=== PATIENT | female | born 1970 | race Caucasian/White ===

== ENCOUNTER 2024-10-09 01:58 | Day surgery (SDC) | payer BC, SELFPAY ==
[2024-10-05 12:03] VITALS: BMI 25.5
--- OUTSIDE RECORDS SUMMARY | 2024-10-09 02:04 | XMS_ITS | Encounter Summary ---
Author Organization [facility] Address [address] [place] [address] [place] [address] Care Team Providers Care Tile Molder Hand Name Role Phone Unavailable Primary Care Provider Unavailabl e Reason for Visit * Reason Onset Date Comments MEDICATION REFILL 09/08/2021 Encounter Details Date Type Department Care Team (Late st Contact Info) Description 09/08/2021 Refill [facility] [address] [place] [address] Jacek New MD [address] OF PULMONARY/[place] [address] MEDICATION REFILL Social History Tobacco Use Types Packs/Day Years Used Date Smoking Tobacco: Never Smokeless Tobacco: Never Alcohol Use Standard Drinks/Week Comments Yes 0 (1 standard drink = 0.6 oz pur e alcohol) AUDIT-C Answer Date Recorded Frequency of Alcohol Consumption Monthly or less 05/25/2019 Average Number of Drinks Not on file 019 Frequency of Binge Drinking Not on file 05/12 Sex and Gender Information Value Date Recorded Sex Assigned at Not on file Gender Identity Not on file Sexual Orientation Not on file documented as of this encounter Plan of Treatment Not on file documented as of this encounter Visit Diagnoses Diagnosis Uncomplicated asthma, unspecified asthma severity, unspecified whether persistent (HCC) documented in this encounter
--- OUTSIDE RECORDS SUMMARY | 2024-10-09 02:04 | XMS_ITS | Encounter Summary ---
Author Organization [facility] Address [address] [place] [address] [place] [address] Care Team Providers Care Digital Marketing Program Manager Name Role Phone Unavailable Primary Care Provider Unavailabl e Reason for Visit * Reason Onset Date Comments MEDICATION REFILL 06/25/2023 Encounter Details Date Type Department Care Team (Late st Contact Info) Description 06/25/2023 Refill [facility] [address] [place] [address], [place] [phone] Jacek New MD [address] [place] [address] DIV OF PULMONARY/[place] [address] MEDICATION REFILL Social History Tobacco Use Types [...] documented as of this encounter Visit Diagnoses Not on filedocumented in this encounter
--- OUTSIDE RECORDS SUMMARY | 2024-10-09 02:04 | XMS_ITS | Encounter Summary ---
Author Organization [facility] Address [address] [place] [address] [place] [address] Care Team Providers Care Sort Line Worker Name Role Phone Unavailable Primary Care Provider Unavailabl e Reason for Visit * Reason Onset Date Comments MEDICATION REFILL 06/25/2023 Encounter Details Date Type Department Care Team (Late st Contact Info) Description 06/25/2023 Refill [facility] [address] [place] [address], [place] [phone] Jacek New MD [address] [place] [address] DIV OF PULMONARY/[place] [address] MEDICATION REFILL Social History Tobacco Use Types [...]
--- OUTSIDE RECORDS SUMMARY | 2024-10-09 02:04 | XMS_ITS | Clinical Summary ---
Author Organization [facility] Address [address] [place] [address] Care Team Providers Care Nursing Attendant Name Role Phone Unavailable Primary Care Provider Unavailabl e Source Comments [facility],non-owned Affiliates and Associated Physician Practices is amultiple site organization consisting of ambulatory clinics and hospital sitesin [place], [place], [place] and [place]. This disclosure is being madepursuant to the Care Everywhere program and may not contain all information available regarding this patient. Last updated 04/01/18.5211game Allergies No known active allergies Medications * Be aware that medications may not be up to date on this document. Alwaysverify current medications with the patient. Medication Sig Dispensed Refills Start Date End Date Status oxybutynin CR 24hr (DITROPAN XL) 15 MG tablet oxybutynin chloride ER 15 mg tablet,extended release 24 hr Take 1 tablet(s) every day by oral route. Active escitalopram (LEXAPRO) 20 MG tablet TK 1 T PO QAM 1 02/04/2019 Active VENTOLIN HFA 108 (90 Base) MCG/ACT inhaler INL 2 PFS PO Q 4 H PRF WHZ 0 02/08/2019 Active fluticasone furoate (FLONASE SENSIMIST/VERAMYST) 27.5 MCG/SPRAY nasal spray [place] 1 (one) spray into each nostril 2 times daily Active triamcinolone acetonide (KENALOG) 0.1 % cream 10/11/2019 Active albuterol-ipratropiu m (DUO-NEB) 0.5-2.5 (3) MG/3ML nebulizer solution 02/10/2019 Active montelukast (SINGULAIR) 10 MG tabletIndications:Un complicated asthma, unspecified asthma severity, unspecified whether persistent (HCC) Take 1 (one) tablet by mouth once daily 90 tablet 4 11/03/2021 Active budesonide-formotero l (Symbicort) 160-4.5 MCG/ACT inhaler Inhale 1 (one) puff by mouth 2 times daily 6 g 11 06/09/2023 Active dupilumab (Dupixent) 200 MG/1.14ML syringeIndications:S evere persistent asthma without complication (HCC) INJECT THE CONTENTS OF 1 SYRINGE (200 MG) UNDER THE SKIN EVERY 14 DAYS 220 mL 11 06/29/2024 Active Active Problems Problem Noted Date Diagnosed Date Severe asthma without complication 10/25/2019 Premenstrual tension syndrome 05/25/2019 Moderate persistent asthma with acute exacerbati on 02/10/2019 Bronchitis 12/22/2018 Vaginitis 12/22/2018 Immunizations Name Administration Dates Next Due INFLUENZA VACCINE 05/12/2020 INFLUENZA VACCINE, QUADR. (F LUZONE; FLULAVAL; FLUARIX; AFLURIA QUADRIVALENT; 6MO+), 0.5 ML (IIV4) 05/25/2019 Social History Tobacco Use Types Packs/Day Years Used Date Smoking Tobacco: Never Smokeless Tobacco: Never Tobacco Cessation:Counseling Given: Not Answered Alcohol Use Standard Drinks/Week Comments Yes 0 [...] on file Sexual Orientation Not on file Last Filed Vital Signs Vital Sign Reading Time Taken Comments Blood Pressure 136/82 06/09/2023 9:51 AM WEED COOKING OPERATOR Pulse 65 06/09/2023 9:51 AM WEED COOKING OPERATOR Temperature 36.5 C (97.7 F) 08/16/2020 8:09 AM WEED COOKING OPERATOR Respiratory Rate 17 06/09/2023 9:51 AM WEED COOKING OPERATOR Oxygen Saturation 99% 06/09/2023 9:51 AM WEED COOKING OPERATOR Inhaled Oxygen Concentration - - Weight 63.3 kg (139 lb 9.6 oz) 06/09/2023 9:51 A M WEED COOKING OPERATOR Height 154.9 cm (5' 1 ) 06/09/2023 9:51 AM WEED COOKING OPERATOR Body Mass Index 26.38 06/09/2023 9:51 AM WEED COOKING OPERATOR Plan of Treatment Health Maintenance Due Date Last Done Comments COLOGUARD (AGES 45-75) - COL ON CA SCREENING 1968 COLON MONITORING 1968 COLONOSCOPY - COLON CA SCREENING 1968 CT COLONOGRAPHY - COLON CA SCREENING 1968 Colorectal Cancer Screening 1968 FIT - COLON CA SCREENING 1968 FLEX SIG - COLON CA SCREENING 1968 HIV SCREENING 1983 HEPATITIS C SCREENING 08/18/1986 DTAP/TDAP/TD VACCINES (1 - Tdap) 1987 HEPATITIS B VACCINE (1 of 3 - 19+ 3-dose series) 1987 PNEUMOCOCCAL VACCINE 50+ (1 of 2 - PCV) 1987 PNEUMOCOCCAL VACCINE (1 of 2 - PCV) 1987 ZOSTER VACCINE (1 of 2) 2018 MAMMOGRAM 02/02/2021 02/02/2019, 02/02/2019 PAP SMEAR 10/17/2021 10/17/2018, 04/14/2017, 03/17/2016 SCREENING FOR DIABETES 06/09/2023 LIPID TESTING 01/24/2024 01/23/2019 COVID-19 VACCINE (1 - 2023-2 5 season) 2024 INFLUENZA VACCINE (#1) 2024 0, 05/25/2019 DEPRESSION SCREENING 07/12/2024 HIB VACCINE Aged Out No longer eligi ble based on patient's age to complete this topic HPV VACCINE Aged Out No longer eligi ble based on patient's age to complete this topic MENINGOCOCCAL (Group B) VACCINE SHARED DECISION-MAKING Aged Out No longer eligible based on patient's age to complete this topic MENINGOCOCCAL GROUPS A/C/Y/W VACCINE Aged Out No longer eligible b ased on patient's age to complete this topic [place] [address] Mckenna Birch Personal/Family Self [address] [place] [address] [place] [address] Mckenna Birch Personal/Family [address] [place] [address] [place] [address]
--- OUTSIDE RECORDS SUMMARY | 2024-10-09 02:05 | XMS_ITS | Encounter Summary ---
Author Organization [facility] Address [address] [place] [address] [place] [address] Care Team Providers Care Juice Mixer Name Role Phone Unavailable Primary Care Provider Unavailabl e Encounter Details Date Type Department Care Team (Late st Contact Info) Description 04/13/2022 Lab Requisition [facility] [address] [place] [phone] Gavin Estrada MD [facility] [address] [phone] Social History Tobacco Use Types Packs/Day Years [...] on file documented as of this encounter Procedures Procedure Name Priority Date/Time Associated Diagnosis Comments DERMATOPATHOLOGY Routine 04/08/2022 3:33 AM CDT documented in this encounter Results * DERMATOPATHOLOGY (04/08/2022 3:33 AM CDT) Case Report Dermatopathology Report Case: [id number] Authorizing Provider: Gavin Estrada MD Collected: 04/08/2022 03:33 AM Ordering Location: [facility] Received: 04/13/2022 10:54 AM Pathologist: Johanne Mercer MD Specimen: Skin, right thigh anterior 12:45 PM CDT DERMATOPATHOLOGY LABORATORY Final Diagnosis Specimen A. SKIN, right thigh anterior: DERMATOFIBROMA, SUPERFICIAL PORTIONS OF (D23.9) HEALING SKIN CHANGES (L90.5) 12:45 PM CDT DERMATOPATHOLOGY LABORATORY Clinical History Verruca, Dermatofibroma, HAK, SCC 12:45 PM CDT DERMATOPATHOLOGY LABORATORY Gross Description Specimen A: Received is one formalin filled container labeled with the patient's name and designated right thigh anterior. The specimen consists of a shave biopsy measuring 3p1q2ge. Jar 0. 12:45 PM CDT DERMATOPATHOLOGY LABORATORY Microscopic Description Specimen A. SKIN, right thigh anterior: There is epidermal hyperplasia. Within the dermis, there are fibrohistiocytic cells in haphazard array among coarse collagen bundles. There is epidermal hyperplasia beneath which there are vascular proliferation, fibroblasts, and an edematous stroma. 12:45 PM CDT DERMATOPATHOLOGY LABORATORY Disclaimer An external and internal positive and negative controls are appropriate for the histochemical, immunohistochemical and immunofluorescence stain(s) in this case (if any), except where stated explicitly. The performance characteristics of the stain(s) cited in this report were developed and its performance characteristic determined by the Dermatopathology Laboratory at [facility], directed by Dr. Marilou Gongora. These tests need not be, and therefore are not, approved by the [place] Food and Drug Administration. The tests are used for clinical purposes. Billing Codes Specimen Charges Stain Charges 87442 1 12:45 PM CDT DERMATOPATHOLOGY LABORATORY Embedded Images 12:45 PM CDT DERMATOPATHOLOGY LABORATORY Pathology/Cytolo gy TISSUE SPECIMEN FROM SKIN / Unknown 04/08/2022 3:33 AM CDT 04/13/2022 10:54 AM CDT Gavin Estrada MD LAB - PATHOLOGY/CYTO LOGY ORDERABLES DERMATOPATHOLOGY LABORATORY [facility] - Department of Dermatology [facility] [address] [place] [address], [address] [phone] documented in this encounter Visit Diagnoses Not on filedocumented in this encounter
--- OUTSIDE RECORDS SUMMARY | 2024-10-09 02:05 | XMS_ITS | Encounter Summary ---
Author Organization [facility] Address [address] [place] [address] [place] [address] Care Team Providers Care Supervisor [employer] Name Role Phone Unavailable Primary Care Provider Unavailabl e Reason for Visit * Reason Onset Date Comments MEDICATION REFILL 09/13/2021 Encounter Details Date Type Department Care Team (Late st Contact Info) Description 09/13/2021 Refill [facility] [address] [place] [address] Jacek New MD [address] OF PULMONARY/[place] [address] MEDICATION REFILL Social History Tobacco Use Types [...]
--- OUTSIDE RECORDS SUMMARY | 2024-10-09 02:05 | XMS_ITS | Data Portability ---
Author Organization [place] - [facility], [facility] - IP Address [address] [place] [address] Assessment No assessment recorded. Plan of Treatment Reminders Order Date Submit Date Provider Last Modified By Organization Details Last Modified Time Details Appointments None recorded. Lab pap, LB + reflex to HR HPV if ASC-U - Collection Date: Collection Time: 2018 019 greynoso [facility] , [address], [place], [address], 9 11:06:41 pap, LB + reflex to HR HPV if ASC-U - Collection Date: Collection Time: 2016 017 PATRICIO [facility] ([facility] , [address], [place], [address], 7 13:38:07 Referral None recorded. Procedures colposcopy with biopsy (PROC) 2018 019 greynoso Not available 9 15:33:14 Surgeries None recorded. Imaging None recorded. Medication Orders oxybutynin chloride ER 15 mg tablet,ext ended release 24 hr 2016 017 INTERFACE [id number], [address] [facility] [place], [address], 7 18:08:30 Estrace 0.01% (0.1 mg/gram) vaginal cream 2016 017 [email or web address] [id number], [address] [facility] [place], [address], 7 17:48:04 Patient TargetsNo targets recorded. Patient Instructions Encounter Date Encounter Id Patient Instructions Last Modified By Organization Details Last Modified Time 08/17/2016 [id number] vaginal bleeding after menopause: care instructions greynoso Not available 08/21/2016 11:42:14 biopsy consisten t with inactive endometrium Not available 08/17/2016 17:49:55 04/14/2017 [id number] [facility] women labs ordered as well as mammogram Not available 04/14/2017 18:07:19 10/17/2018 [id number] well women labs, mammogram, dexa scan and colonoscopy ordered Not available 10/17/2018 16:48:19 11/02/2018 [id number] abnormal Pap test: care instructions Not available 11/02/2018 11:38:09 colposcopy: before your procedure Not available 11/02/2018 11:38:09 RTC 1 week Not available 10/11 11:38:09 11/09/2018 [id number] abnormal Pap test: care instructions Not available 11/09/2018 16:03:49 colposcopy: before your procedure Not available 11/09/2018 16:03:49 bengn biopsy Repeat PAP in 6 months Not available 11/09/2018 16:03:49 Reason for Referral None Reported. Results Created Date Observation Date Name Description Value Unit Range Abnormal Flag Note LastModifiedBy Organization Detail LastModifiedTime 07/27/19 17 07/28/2016 bacte rial vagin osis + vagin itis panel , vagin al geovani sp DNA probe NEGATI VE negati ve Not Available [facility] [address] [place], [address], 07/29/2016 07:30:09 07/27/19 17 07/28/2016 bacte rial vagin osis + vagin itis panel , vagin al gardnerella DNA prb NEGATI VE negati ve Not Available [facility] [address] [place], [address], 07/29/2016 07:30:09 07/27/19 17 07/28/2016 bacte rial vagin osis + vagin itis panel , vagin al trich vag DNA probe NEGATI VE negati ve Not Available [facility] [address] [place], [address], 07/29/2016 07:30:09 08/05/19 17 08/07/2016 biops y, endom etria l endometrial biopsy BENIGN normal .. [facility] PATHO LOGY REPOR T .. JEN NT ID: [id number] SPECI MEN SOURC E: Endom etriu m CLINI [facility]ARD[facility] DATA: N92.0 , N92.4 CLINI [facility]: A. ENDOM ETRIA L BIOPS Y GROSS : A. RECEI ANAI IN FORMA MOI AND LABEL ED WITH JEN NT IDENT IFICA TION, IS AN AGGRE GATE OF CLEAR MUCOI D MEASU RING 0.2 X 0.2 X 0.1 CM. ENTIR GHISLAINE SUBMI TTED IN ONE CASSE TTE. DIAGN OSIS: A. SCANT Y INACT MARCELLA ENDOM ETRIU M. NEGAT MARCELLA FOR HYPER PLASI A OR MALBIA VOGTCY . PREVI OUS PAP RESUL T: Repor t Date Speci men Id Diagn osis ----- ----- -- ----- ----- -- ----- ----- ----- ----- ----- ----- ----- ----- -- [id number] Negat marcella for intra epith elial lesio n or malig yani LIT DAMON M.D. PATHO LOGIS T This repor t was elect gideon muller FINAL REPOR T Not Available [facility] ([facility]) [address], [place], [address], 08/08/2016 00:04:56 04/14/20 17 04/20/2017 pap, LB + refle x to HR HPV if ASC-U Pap, liquid-based NILM normal DIAGN OSIS: Negat marcella for intra epith elial lesio n or malig yani ADEQU ACY: Satis facto ry for evalu ation / Endoc ervic al/tr ansfo rmati on zone compo nent prese nt. COMME NT: This Pap smear was scree vita with the dorothy tance of the [facility] ThinP rep(T M) Imagi ng Syste m and scree vita by a cytot echno logis t. SPECI MEN SOURC E: PAP (RFLX HPV PLUS WHENA SC-US ), CERVI RICARDO-E NDOCE RVICA L CLINI RICARD[facility] INFOR MATIO N: LMP: N/A Provi ded Diagn osis Codes : Z01.4 19 Cervi covag inal cytol ogy esteban d be consi dered a scree sisi proce dure subje ct to false negat [place] and false posit [place]. Resul ts are more relia ble when a satis facto ry sampl e is obtai vita on a regul ar repet itive basis , and shoul d be inter prete d toget her with past and curre nt clini ricardo data. ELECT GIDEON ÓSCAR Dorsey BY: Scree vita By: Sandra Man, CT (ASCP ) Case Elect gideon óscar dorsey 04/20 Not Available [facility] ([facility]) [address], [place], [address], 04/20/2017 13:38:07 10/18/1910/26/2018 pap, LB + refle x to HR HPV if ASC-U Pap, liquid-based ASC-US abnormal DIAGN OSIS: Atypi ricardo squam ous cells of undet ermin ed signi fican ce (ASC- US) ADEQU ACY: Satis facto ry for evalu ation / Endoc ervic al/tr ansfo rmati on zone compo nent prese nt. Parti ally obscu ring infla mmati on. COMME NT: This Pap smear was manua lly scree vita. SPECI MEN SOURC E: Pap (Refl ex to HPV DNA Genot yping 16, 18 when ASC-U S or >), CERVI RICARDO ENDOC ERVIC AL CLINI [facility] INFOR JORDAN N: LMP: 2014 Provi ded Diagn osis Codes : Z01.4 19 Cervi covag inal cytol ogy shoul d be consi dered a scree sisi proce dure subje ct to false negat [place] and false posit [place]. Resul ts are more relia ble when a satis facto ry sampl e is obtai vita on a regul ar repet itive basis , and shoul d be inter prete d toget her with past and curre nt clini ricardo data. ELECT GIDEON ÓSCAR Dorsey BY: Patho logis t Revie w By: Hayley mendez M.D. Case Elect selvinteresita dorsey 10/26 Cytol ogy scree sisi and inter preta tion perfo rmed at: [facility] [id number] [facility] [address] [place] [address] Not Available [facility] ([facility]) [address], [place], [address], 10/27/2018 16:07:10 10/18/19 19 10/27/2018 pap, LB + refle x to HR HPV if ASC-U HPV high risk DNA (non 16/18) Detect ed abnormal Not Available [facility] ([facility]) [address], [place], [address], 10/27/2018 16:07:10 10/18/19 19 10/27/2018 pap, LB + refle x to HR HPV if ASC-U HPV high risk DNA type 18 Not Detect ed normal Not Available [facility] ([facility]) [address], [place], [address], 10/27/2018 16:07:10 10/18/19 19 10/27/2018 pap, LB + refle x to HR HPV if ASC-U HPV high risk DNA type 16 Not Detect ed normal HPV High Risk DNA (Non 16/18 ) (1,3, 4,5) HPV High Risk DNA Type 18 (1,2, 3,4,5 ) HPV High Risk DNA Type 16 (1,2, 3,4,5 ) (1) The renea (R) HPV test is FDA-c leare d for ThinP rep(R ) speci mens and detec ts genom ic HPV DNA in the polym orphi c L1 regio n in 14 subty pes: Type 16, Type 18, and other high risk types (31,3 3,35, 39,45 ,51,5 2,56, 58,59 ,66,6 8). The test has been modif ied and valid ated for use in SureP ath(T M) speci mens. (2) HPV types 16 and/o r 18 that were Not Detec mitch were undet ectab le or below the pre-s et thres hold. (3) The non-r epeat rate for HPV genot yping assay s varie s from 5 to 15%. In the NILM cytol ogy categ ory, there is a low posit marcella predi ctive value (PPV = 15-20 %) for CIN2+ with a posit marcella high risk HPV resul t. (4) This test was evalu ated and its perfo rmanc e tanika cteri stics deter mined by [facility]. It has not been clear ed or appro anai by the U.S. Food and Drug Admin istra tion. The FDA has deter mined that such clear ance or appro francis is not neces inocencia. [facility] is certi fied under the Clini ric[facility] Labor atory Impro vemen t Amend ments of 1987 (CLIA ) as quali fied to perfo rm high compl exity clini ricardo testi ng. This test is used for clini ricardo purpo ses. It shoul d not be regar ded as inves tigat ional or for resea rch. (5) Resul ts shoul d be inter prete d toget her with past and curre nt clini ricardo and labor atory data. Not Available [facility] ([facility]) [address], [place], [address], 10/27/2018 16:07:10 10/18/19 19 10/26/2018 HPV DNA, genot ypes 16+18 , genit al Pap, liquid-based ASC-US abnormal DIAGN OSIS: Atypi ricardo squam ous cells of undet ermin ed signi fican ce (ASC- US) ADEQU ACY: Satis facto ry for evalu ation / Endoc ervic al/tr ansfo rmati on zone compo nent prese nt. Parti ally obscu ring infla mmati on. COMME NT: This Pap smear was manua lly scree vita. SPECI MEN SOURC E: Pap (Refl ex to HPV DNA Genot yping 16, 18 when ASC-U S or >), CERVI RICARDO ENDOC ERVIC AL CLINI RICARDO INFOR MATIO N: LMP: 2014 Provi ded Diagn osis Codes : Z01.4 19 Cervi covag inal cytol ogy shoul d be consi dered a scree sisi proce dure subje ct to false negat [place] and false posit [place]. Resul ts are more relia ble when a satis facto ry sampl e is obtai vita on a regul ar repet itive basis , and shoul d be inter prete d toget her with past and curre nt clini ricardo data. ELECT SELVINTERESITA CANTRELL PAULETTE D BY: Patho logis t Revie w By: Hayley mendez M.D. Case Elect gideon cantrell Paulette d 10/26 Cytol ogy scree sisi and inter preta tion perfo rmed at: [facility] [address] [place] [address] Not Available [facility] ([facility]) [address], [place], [address], 10/27/2018 16:07:10 10/18/19 19 10/27/2018 HPV DNA, genot ypes 16+18 , genit al HPV high risk DNA (non 16/18) Detect ed abnormal Not Available [facility] ([facility]) [address], [place], [address], 10/27/2018 16:07:10 10/18/19 19 10/27/2018 HPV DNA, genot ypes 16+18 , genit al HPV high risk DNA type 18 Not Detect ed normal Not Available [facility] ([facility]) [address], [place], [address], 10/27/2018 16:07:10 10/18/19 19 10/27/2018 HPV DNA, genot ypes 16+18 , genit al HPV high risk DNA type 16 Not Detect ed normal HPV High Risk DNA (Non 16/18 ) (1,3, 4,5) HPV High Risk DNA Type 18 (1,2, 3,4,5 ) HPV High Risk DNA Type 16 (1,2, 3,4,5 ) (1) The renea (R) HPV test is FDA-c leare d for ThinP rep(R ) speci mens and detec ts genom ic HPV DNA in the polym orphi c L1 regio n in 14 subty pes: Type 16, Type 18, and other high risk types (31,3 3,35, 39,45 ,51,5 2,56, 58,59 ,66,6 8). The test has been modif ied and valid ated for use in SureP ath(T M) speci mens. (2) HPV types 16 and/o r 18 that were Not Detec mitch were undet ectab le or below the pre-s et thres hold. (3) The non-r epeat rate for HPV genot yping assay s varie s from 5 to 15%. In the NILM cytol ogy categ ory, there is a low posit marcella predi ctive value (PPV = 15-20 %) for CIN2+ with a posit marcella high risk HPV resul t. (4) This test was evalu ated and its perfo rmanc e tanika cteri stics deter mined by [facility]. It has not been clear ed or appro anai by the U.S. Food and Drug Admin istra tion. The FDA has deter mined that such clear ance or appro francis is not neces inocencia. [facility] is certi fied under the Clini ricardo Labor atory Impro vemen t Amend ments of 1987 (CLIA ) as quali fied to perfo rm high compl exity clini ricardo testi ng. This test is used for clini ricardo purpo ses. It shoul d not be regar ded as inves tigat ional or for resea rch. (5) Resul ts shoul d be inter prete d toget her with past and curre nt clini ricardo and labor atory data. Not Available [facility] ([facility]) [address], [place], [address], 10/27/2018 16:07:10 11/03/19 19 11/08/2018 biops y, cervi ricardo Unknown Analyte normal CASE: [facility]-1 [id number] PATIE NT: RAIMUNDO KRAMER FINAL DIAGN OSIS: SPECI MEN A: CERVI RICARDO BIOPS Y AT 10 O CLOCK Fragm ents of benig n atrop hic squam ous mucos a. IHC stain s for Ki-67 and p16 suppo rt a benig n atrop hic proce ss. No intra epith elial lesio n or malig yani . SPECI MEN B: CERVI RICARDO BIOPS Y AT 6 O CLOCK Fragm ents of benig n atrop hic squam ous mucos a. No intra epith elial lesio n or malig yani . SPECI MEN C: SOFT ECC Fragm ents of benig n atrop hic squam ous mucos a and endoc ervic al tissu e. IHC stain s for Ki-67 and p16 suppo rt a benig n atrop hic proce ss. No intra epith elial lesio n or malig yani . Gross Descr iptio n: Recei anai in forma moi on a soft biops y brus h is a 0.3 cm aggre gate of pink- tinge d mucoi d/fib rinou s mater ial, total ly submi tted. Secti ons: A1-N. Recei anai in forma moi on a soft biops y brus h is a 0.2 cm aggre gate of pink- tinge d mucoi d/fib rinou s mater ial, total ly submi tted. Secti ons: B1-N. Recei anai in forma moi on a soft ECC brus h is a 0.3 cm aggre gate of pink- tinge d mucoi d/fib rinou s mater ial, total ly submi tted. Secti ons: C1-N. MONICA/k graciela Dewitt M.D. Patho logis t Elect gideon dorsey Nov 08, 2018 Date Repor mitch: Nov 08, 2018 Not Available [facility] ([facility]) [address] [facility], [place], [address], 11/08/2018 11:25:33 02/10/20 19 02/09/2019 DEXA No observ ation record ed. [facility] (Radiology) [address] [place] [address], [address], 02/22/2019 12:44:51 02/16/20 19 02/09/2019 DEXA No observ ation record ed. Not Available 02/22 12:36:50 Result Notes None recorded. Problems Name Problem SNOMED Code Status Onset Date Resolution Date Notes Provider Name and Address Organization Details Recorded Time Premenstrual tension syndrome [id number] Active Joaquim Morrell MD [address] [facility] [employer] [facility], [place], [address], [facility] 5 12:47:25 Vaginitis 74577302 Active Joaquim Morrell MD [address] [facility] [employer] [facility], [place], [address], [facility] 5 14:01:41 Problem Notes None recorded. Procedures Surgical History Date Name Laterality Status Provider Name and Address Organization Details Recorded Time 9 Colposcopy completed Joaquim Morrell MD [address] [facility],[address], [place], [address], [facility] 11/02/2018 11:37:42 9 Date of Last Pap Smear completed Shantel sands [facility] 11/02/2018 11:05:59 7 Endometrial Biopsy completed Joaquim Morrell MD [address] [facility],[address], [place], [address], [facility] 08/05/2016 13:15:03 Unlisted px foot/toes completed Vicki Rios [facility] 03/17/2016 17:08:02 Carpal tunnel surgery completed Vicki Rios [facility] 03/17/2016 17:08:12 Imaging Results Imaging Date Name Status LastModified by Organizatio n Details LastModified Time 02/09/2019 DEXA completed [address] (Radiology) [address] [place] [address], [address], 02/22/2019 12:44:51 02/09/2019 DEXA completed [email or web address] Information no t available 02/22/2019 12:36:50 Procedure Notes None recorded. Medical Equipment None Reported. Allergies No known drug allergies Medications Name Sig Start Date Stop Date Status Note LastModified by Organization Details LastModified Time Prescripti on - Renewal active Not Available Not Available Not Available oxybutynin chloride ER 15 mg tablet,ext ended release 24 hr Take 1 tablet(s ) every day by oral route. 2018 active Not Available Not Available Not Avai lable oxybutynin chloride ER 10 mg tablet,ext ended release 24 hr TAKE 1 TABLET BY MOUTH DAILY active Not Available Not Available No t Available valacyclov ir 1 gram tablet TAKE 1 TABLET BY MOUTH EVERY MORNING 2017 active Not Available Not Available Not Avai lable Fosamax 70 mg tablet Take 1 tablet every week by oral route in the morning. 2018 active Not Available Not Available Not Avai lable Estrace 0.01% (0.1 mg/gram) vaginal cream Insert 1 g twice a week by vaginal route in the evening for 90 days. 04/14 completed Not Available Not Available Not Available escitalopr am 10 mg tablet TAKE ONE TABLET BY MOUTH EVERY MORNING 2014 active Not Available Not Available Not Avai lable escitalopr am 20 mg tablet one PO QAM 2018 active Not Available Not Available Not Avai lable trospium 20 mg tablet Take 1 tablet twice a day by oral route. 04/14 completed Not Available Not Available Not Available Enablex 7.5 mg tablet,ext ended release Take 1 tablet every day by oral route. 01/19 completed Not Available Not Available Not Available Clindesse 04/14 completed Rx called in for bv Not Available Not Available Not Available trospium ER 60 mg capsule,ex tended release 24 hr TAKE 1 TABLET BY MOUTH EVERY DAY 04/14 completed Not Available Not Available Not Available Vitals Date Recorded Body height Body weight Body mass index (BMI) Systolic blood pressure Diastolic blood pressure Provider Name and Address Organization Details Last Updated DateTime 08/17/2016 154.94 cm 15861.68 g 22.9 kg/m2 150 mm[Hg] 100 mm[Hg] Alisha Danielson [facility] 7 17:39:57 Date Recorded Systolic blood pressure Diastolic blood pressure Provider Name and Address Organization Details Last Updated DateTime 08/17/2016 148 mm[Hg] 78 mm[Hg] MY SENIOR [facility] 08/17/2016 17:53:12 Date Recorded Body height Body mass index (BMI) Body weight Systolic blood pressure Diastolic blood pressure Provider Name and Address Organization Details Last Updated DateTime 04/14/2017 154.94 cm 23.1 kg/m2 62319.27 g 120 mm[Hg] 86 mm[Hg] Alissa Serrano [facility] 7 17:47:13 Date Recorded Body weight Body mass index (BMI) Body height Systolic blood pressure Diastolic blood pressure Provider Name and Address Organization Details Last Updated DateTime 10/17/2018 77360.05 g 23.6 kg/m2 154.94 cm 126 mm[Hg] 90 mm[Hg] Alisha Danielson [facility] 9 16:11:48 Date Recorded Body height Body mass index (BMI) Body weight Systolic blood pressure Diastolic blood pressure Provider Name and Address Organization Details Last Updated DateTime 11/02/2018 154.94 cm 23.7 kg/m2 75653.76 g 120 mm[Hg] 82 mm[Hg] Shantel sands [facility] 9 11:05:36 Date Recorded Body height Provider Name an d Address Organization Details Last Updated DateTime 11/09/2018 154.94 cm Ida Jagjit [facility] 11/10/2018 13:36:33 Social History Question Answer Notes LastModified by Organizat ion Details LastModified Time Tobacco Smoking Status Never Smoker Vicki lozano [facility] 03/17/2016 17:06:39 What Is Your Level Of Alcohol Consumption? Moderate Information not available 03/17/2016 Is Blood Transfusion Acceptable In An Emergency? Yes Information not available 03/17/2016 What Is Your Level Of Caffeine Consumption? Moderate Information not available 03/17/2016 Are You Currently Employed? Yes Information not available 03/17/2016 What Type Of Diet Are You Following? REGULAR Information not available 03/17/2016 Which Illicit Or Recreational Drugs Have You Used? 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 11/02/2018 Information not available 02/02/2019 How Many Children Do You Have? 2 Information not available 03/17/2016 Performs Monthly Self-breast Exam? No Information no t available 03/17/2016 Do You Use Protection During Sex? No [email or web address] Information not available 11/02/2018 Seat Belts Used Routinely Yes Information not available 03/17/2016 Are You Sexually Active? Yes [email or web address] Information not available 11/02/2018 General Stress Level Medium Information not available 03/17/2016 Do You Use Sunscreen Routinely? No Information not available 03/17/2016 Sex: Unknown Functional Status Question Answer Note LastModified by Organization D etails LastModified Time What is your exercise level? Moderate Information not available 03/17/2016 Mental Status None recorded. Family History Relationship Description Onset Age of this Age Resolved Age Notes LastModified by Organization Details LastModified Time Father No current problems or disability [email or web address] Not available 04/14 17:49:35 Mother No current problems or disability [email or web address] Not available 04/14 17:49:35 Medical History Condition Response Other N Depression N Headaches/Migraines N Anxiety Disorder Y Arthritis N Infertility N Polyps N Acid Reflux (GERD) N Cancer N Stroke N Varicosities N Fibromyalgia N Kidney Disease N Heart Problems N Kidney or Bladder Problems Y Acne N Eating Disorder N Asthma N Hepatitis N Thrombophilias N Breast Cancer N Lung Disease N Defects or Inherited Disease N Breast Problem N Anesthesia Complications N Endometriosis N High Cholesterol N Thyroid Problems N GI Problems N Anemia N Psychiatric Illness N Ovarian Cancer N Diabetes N Blood Transfusions N Abuse/Domestic Violence N Heart Disease N Pre-Eclampsia N Hypertension N Osteoporosis N Gynecological History Statement/Question Response Abnormal Pap Y Post Menopausal Bleeding N STIs/STDs Y Current Control Method None Most Recent Mammogram Age at Menarche 8 Age at First Child 25 If Post Menopausal, Age at Menopause Most Recent Bone Density Sexually Active? Y Date of Last Pap Smear 10/17/2018 Sexual Problems? N Desired Control Method None LMP Hormone Replacement Therapy N Obstetrics History GPAL:G 2 P 0 2 0 2 Type Value Premature 2 Living 2 Total 2 Past Encounters Encounter ID Performer Location Encounter Start Date Encounter Closed Date Diagnosis/Indication Diagnosis SNOMED-CT Code Diagnosis ICD10 Code Diagnosis Note [id number] MAIN OFFICE [address] [address] 03/07/2015 13:22:17 03/07/2015 14:36:35 Vaginitis [id number] Laura Maynard MAIN OFFICE [address] [address] 03/17/2016 16:55:15 03/18/2016 12:33:24 Gynecologic examination [id number] Z01.419 [id number] Laura Maynard MAIN OFFICE [facility] [address] [place] [address] 07/27/2016 12:19:01 07/27/2016 16:38:25 Vaginitis 87702543 N76.0 [id number] Laura Maynard MAIN OFFICE [facility] [address] [place] [address] 08/05/2016 10:32:00 08/05/2016 16:00:58 Postmenopausal bleeding 58582605 N95.0 [id number] Laura Maynard MAIN OFFICE [facility] [address] [place] [address] 08/17/2016 17:10:04 08/17/2016 18:08:42 Postmenopausal bleeding 30224958 N95.0 [id number] Laura Maynard MAIN OFFICE [facility] [address] [place] [address] 04/14/2017 17:34:06 04/15/2017 09:03:04 Gynecologic examination [id number] Z01.419 [id number] Laura Maynard MAIN OFFICE [facility] [address] [place] [address] 10/17/2018 16:02:55 10/19/2018 12:50:11 Gynecologic examination [id number] Z01.419 [id number] Laura Maynard MAIN OFFICE [facility] [address] [place] [address] 11/02/2018 10:52:02 11/03/2018 13:43:16 Abnormal cervical Papanicolaou smear [id number] R87.619 12000 Ida Danielson MAIN OFFICE [facility] [address] [place] [address] 11/09/2018 14:47:10 11/11/2018 20:51:57 Abnormal cervical Papanicolaou smear [id number] R87.619 Health Concerns Section Related Observation LastModified by Organization Detai ls LastModified Time None Recorded Concern Status LastModified by Organization Details LastModified Time None Recorded Advance Directives Directive None Recorded Payers Encounter Date Sequence Insurance Name Policy Number Policy Delong Covered Member ID Delong Member ID Guarantor Name 08/17/2016 1 [facility] [id number] Raimundo Rockwell [id number] Raimundo Rockwell 04/14/2017 1 [facility] [id number] Raimundo Rockwell [id number] Raimundo Porteriol 10/17/2018 1 [place] [id number] Walker Stimac [id number] Raimundo Porteriol 11/02/2018 1 [place] [id number] Walker Stimac [id number] Raimundo Porteriol 11/09/2018 1 [place] [id number] Walker Stimac [id number] Raimundo Rockwell OBGyn Episode No OBEpisode recorded.
--- OUTSIDE RECORDS SUMMARY | 2024-10-09 02:05 | XMS_ITS | Clinical Summary ---
Author Organization [facility] Address [address] [place] [phone] Phone Care Team Providers Care Wild Life Photographer Name Role Phone Provider, None Primary Care Provider Unavailabl e Allergies No known active allergies Medications escitalopram (LEXAPRO) 20 MG Tablet TK 1 T PO QAM 1 9 Active oxybutynin (DITROPAN XL) 15 MG TABLET SR 24 HR oxybutynin chloride ER 15 mg tablet,extended release 24 hr Take 1 tablet(s) every day by oral route. Active Cetirizine HCl (ZYRTEC PO) Take by mouth. Act dulce VENTOLIN HFA 108 (90 Base) MCG/ACT Aerosol Solution INHALE 2 PUFFS BY MOUTH EVERY 4 HOURS NEEDED FOR WHEEZING 2 Inhaler 9 Active Respiratory Therapy Supplies (NEBULIZER/TUBI NG/MOUTHPIECE) Kit 1 Units by Does not apply route as needed (asthma, cough, shortness of breath). 1 Each 9 Active Spacer/Aero-Hol ding Chambers Device Use as directed 1 Each 9 Active ipratropium-alb uterol (DUO-NEB) 0.5-2.5 (3) MG/3ML Solution USE 1 VIAL VIA NEBULIZER EVERY 6 HOURS NEEDED FOR SHORTNESS OF BREATH, WHEEZING AND COUGH 1080 mL 9 Active alendronate (FOSAMAX) 70 MG Tablet Fosamax 70 mg tablet Take 1 tablet every week by oral route in the morning. Active guaiFENesin (MUCINEX) 600 MG TABLET SR 12 HR Take 600 mg by mouth 2 times daily. Active fluticasone (FLONASE) 50 MCG/ACT Suspension 1 [place] by Nasal route daily. 3 Bottle 2 9 Active montelukast (SINGULAIR) 10 MG Tablet Take 10 mg by mouth every evening. Active predniSONE (DELTASONE) 10 MG Tablet Take 1 Tab by mouth daily. 5 tablets x 3 days; 4 tablets x 3 days; 3 tablets x 3 days; 2 tablets x 3 days; 1 tablet x 3 days 45 Tab 9 Active hydrOXYzine (ATARAX) 25 MG Tablet Take 1 Tab by mouth every 6 hours as needed for Itching. 45 Tab 1 9 Active budesonide-form oterol fumarate (SYMBICORT) 160-4.5 MCG/ACT Aerosol take 2 Puffs by inhalation 2 times daily. 2 Inhaler 2 0 Active triamcinolone (KENALOG) 0.1 % Cream Apply to affect areas up 1-2 times daily for no more than 2 weeks at a time. 1 Tube 1 0 Active Active Problems Problem Noted Date Diagnosed Date Moderate persistent asthma with acute exacerbati on 02/10/2019 Asthma due to seasonal allergies 02/10/2019 Bronchitis 12/22/2018 Eczema 12/22/2018 Family History Medical History Relation Name Comments Heart Attack Father Relation Name Status Comments Father Alive Mother Alive Social History Tobacco Use Types Packs/Day Years Used Date Smoking Tobacco: Never Smokeless Tobacco: Never Tobacco Cessation:Counseling Given: No Alcohol Use Standard Drinks/Week Comments Yes 0 (1 standard drink = 0.6 oz pur e alcohol) socially PHQ-2 Answer Date Recorded PHQ-2 Score 0 03/08/2019 Comments No Sex and Gender Information Value Date Recorded Sex Assigned at Not on file Legal Sex Female 8:00 AM CDT Gender Identity Not on file Sexual Orientation Not on file Last Filed Vital Signs Vital Sign Reading Time Taken Comments Blood Pressure 118/78 06/13/2019 4:12 PM 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 Pulse 57 06/13/2019 4:12 PM 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 Temperature 37.2 C (99 F) 06/13/2019 4:12 PM 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 Respiratory Rate 18 06/13/2019 4:12 PM 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 Oxygen Saturation 98% 06/13/2019 4:12 PM 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 Inhaled Oxygen Concentration - - Weight 56.3 kg (124 lb 3.2 oz) 06/13/2019 4:12 P M 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 Height 156.2 cm (5' 1.5 ) 06/13/2019 4:12 PM 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 Body Mass Index 23.09 06/13/2019 4:12 PM 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 Plan of Treatment Health Maintenance Due Date Last Done Comments Hepatitis C Virus (HCV) Screening 1968 TdaP Immunization 1968 Hepatitis B Immunization (1 of 3 - 19+ 3-dose series) 1987 Pneumococcal Immunization (50+ years) (1 of 2 - PCV) 1987 Pap Smear 1989 Cervical Cancer Screening (CCS) 1998 HPV/Cotest 1998 Colonoscopy 2013 Immunochemical Fecal Occult Blood 2018 Colorectal Cancer Screening 03/04/2019 Mammogram 02/03/2020 02/02/2019 Cologuard 03/03/2022 03/03/2019 Zoster Immunization (2 of 2) 08/17/2022 06/22/2022 Influenza Immunization (#1) 03/12/202406/11, 04/12/2021, 05/12/2020, Additional history exists SARS-COV-2 Immunization ( season) 2024 06/22/2022, 07/26/2021, 10/05/2020, Additional history exists Respiratory Syncytial Virus (RSV) Immunization (Adult) (1 - 1-dose 75+ series) 2043 Meningococcal Immunization (ACWY) Aged Out No longer eligible based on patient's age to complete this topic Rotavirus Immunization Aged Out No lo nger eligible based on patient's age to complete this topic Procedures Procedure Name Priority Date/Time Associated Diagnosis Comments COLOGUARD Routine 03/03/2019 10:20 AM CDT Colon cancer screening PAULETTE SCREENING BILATERAL DIGITAL W CAD W MATIAS Routine 02/02/2019 7:17 AM CDT Breast cancer screening from Last 3 Months or Most Recently Relevant to Health Maintenance Results * COLOGUARD (03/03/2019 10:20 AM CDT) Cologuard Negative Not Applicable [facility] Comment: A negative result indicates a low likelihood that a colorectal cancer (CRC) or an advanced adenoma (adenomatous polyps with more advanced pre-malignant features) is present. The chance that a person with a negative Cologuard test has a colorectal cancer is less than 1 in 1500 (negative predictive value >99.9%) or has an advanced adenoma is less than 5.3% (negative predictive value 94.7%). These data are based on a prospective cross-sectional screening study of 10,000 individuals at average risk for colorectal cancer who were screened with both Cologuard and colonoscopy. (Akua Nunn et al, N Engl J Med 2014;370(14):7693-7574) COLOGUARD RE-SCREENING RECOMMENDATION: Periodic routine colorectal cancer screening is an important part of preventive healthcare for asymptomatic persons at average risk for colorectal cancer. Following a negative Cologuard result, the [place] Cancer Society and U.S. Multi-Society Task Force screening guidelines recommend a Cologuard re-screening interval of 3 years. References: [employer] Cancer Society (ACS). Colorectal cancer prevention and early detection. [place], [place]: [employer] Society; [updated 2015Nov 02]. https://www.cancer.org/cancer/biikj-qlxufi-kuihke/upwtybzeh-kafdpkdnf-leagtsx/ acs-recommendations.html. Accessed March 11, 2018; Wing DK, Karen BURCIAGA, [employer], Colorectal Cancer Screening: Recommendations for Physicians and Patients from the U.S. Multi-Society Task Force on Colorectal Cancer Screening, Am J Gastroenterology 2017; 112:5760-6910. Test Type: Composite algorithmic analysis of stool DNA-biomarkers with hemoglobin immunoassay. Quantitative values of individual biomarkers are not reportable and are not associated with individual biomarker result reference ranges. Precautions and Limitations: Cologuard is intended for colorectal cancer screening of adults of either sex, 50 years or older, who are at typical average-risk for colorectal cancer. A negative Cologuard test result does not guarantee the absence of colorectal cancer or advanced adenoma (pre-cancer). Patients with a negative Cologuard test result should be advised to continue participating in a colorectal cancer screening program. Cologuard may produce a positive result, even though a colonoscopy may not find colorectal cancer or precancerous polyps. The performance of Cologuard has been established in a cross sectional study (i.e., single point in time). Performance has not been evaluated in adults who have been previously tested with Cologuard or in patients less than 50 years of age. Cologuard has been approved for use by the U.S. FDA. Cologuard performance data in a 10,000 patient pivotal study using colonoscopy as the reference method can be accessed at the following location: www.ZipList.com/results. Additional description of the Cologuard test process, warnings and precautions can be found at www.cologuardtest.com. Rx Only. Stool specimen (specimen) 03/03/2019 10:20 AM CDT 03/04/2019 5:18 PM CDT Jama Carlson PAC BODY FLUIDS & STOOLS ORD ERABLES Final Result [employer] [facility] [address] [place] [address], [employer] [address] [place] [address] * PAULETTE SCREENING BILATERAL DIGITAL W CAD W MATIAS (02/02/2019 7:17 AM CDT) Anatomical Region Laterality Modality breast Bilateral Mammography 02/02/2019 7:00 AM CDT Narrative 02/02/2019 11:10 AM CDT - PAULETTE SCREENING BILATERAL DIGITAL W CAD W MATIAS BILATERAL DIGITAL SCREENING MAMMOGRAM 3D/2D WITH CAD WITH MEDIOLATERAL OBLIQUE CRANIOCAUDAL: 02/02/2019 The study was acquired using digital technology and interpreted from soft copy. Current study was also evaluated with ICAD version 7.2. CLINICAL: New baseline. Patient has no complaints. No personal history of cancer. Maternal aunt had breast cancer. COMPARISONS: No prior exams were available for comparison. BREAST TISSUE:There are scattered fibroglandular densities in both breasts. FINDINGS: No significant masses, calcifications, or other findings are seen in either breast. IMPRESSION: BI-RAD 1 NEGATIVE There is no mammographic evidence of malignancy. A 1 year screening mammogram is recommended. The patient has been or will be contacted. The patient will be entered into a reminder system with a target due date of 1 year for her next screening exam. Electronically signed by: Charbel caraballo/mary:02/02/2019 08:47:24 Tire Fabric Inspector: Kendal Peguero (R), [facility]: Normal Exam Reading location: [place] BI-RADS: 1 Negative Procedure Note Charbel Contreras MD - 02/02/2019 - PAULETTE SCREENING BILATERAL DIGITAL W CAD W MATIAS BILATERAL DIGITAL SCREENING MAMMOGRAM 3D/2D WITH CAD WITH MEDIOLATERAL OBLIQUE CRANIOCAUDAL: 02/02/2019 The study was acquired using digital technology and interpreted from soft copy. Current study was also evaluated with ICAD version 7.2. CLINICAL: New baseline. Patient has no complaints. No personal history of cancer. Maternal aunt had breast cancer. COMPARISONS: No prior exams were available for comparison. BREAST TISSUE:There are scattered fibroglandular densities in both breasts. FINDINGS: No significant masses, calcifications, or other findings are seen in either breast. IMPRESSION: BI-RAD 1 NEGATIVE There is no mammographic evidence of malignancy. A 1 year screening mammogram is recommended. The patient has been or will be contacted. The patient will be entered into a reminder system with a target due date of 1 year for her next screening exam. Electronically signed by: Charbel caraballo/mary:02/02/2019 08:47:24 Tire Fabric Inspector: Kendal Peguero (R), [facility] letter sent: Normal Exam Reading location: [place] BI-RADS: [address] [facility] IM MAMMO ORDERABLES Fin al Result from Last 3 Months or Most Recently Relevant to Health Maintenance [place] [address] [facility] Care Teams Wild Life Photographer Relationship Specialty Start Date End Date Provider, Dimple ND PCP - General 04/27/22
[2024-10-09 08:53] VITALS: BP 144/86; PULSE 82; RESP 20; TEMP 35.6; O2SAT 100
[2024-10-09] MEDS: LACTATED RINGERS 1,000 ML 150 ML IV CONT (09:04)
--- NOTE | 2024-10-09 09:18 | WPDANESEPPF ---
Anes - Initial Pre Proc Eval Procedure: Operation Date: 10/09/24 10:00 Proposed Procedures p Screening Colonoscopy - Mook Lares MD Date/Time: 10/09/24 09:18 Surgeon: Mook Lares MD Pre Op Diagnosis: Encounter for screening for malignant neoplasm of Patient Data Age: 54 Gender: F Height: 1.55 m Weight: 60.4 kg Last Vital Signs Temp 96.1 F L 10/09/24 08:53 Pulse 82 10/09/24 08:53 Resp 20 10/09/24 08:53 BP 144/86 H 10/09/24 08:53 Pulse Ox 100 10/09/24 08:53 O2 Del Method Room Air 10/09/24 08:53 Allergies Allergy/AdvReac Type Severity Reaction Status Date / Time No Known Allergies Allergy Verified 10/09/24 08:51 Home Medications ?Medication ?Instructions ?Recorded ?Confirmed ?Type apremilast 30 mg tablet (Otezla) mg PO 10/05/24 History dupilumab 200 mg/1.14 mL mg subcut 10/05/24 History subcutaneous syringe (Dupixent) escitalopram oxalate 20 mg tablet 20 mg PO DAILY 10/05/24 10/09/24 History oxybutynin chloride 15 mg 15 mg PO DAILY 10/05/24 10/09/24 History tablet,extended release 24 hr Patient hx anesthesia problems: none Family hx anesthesia problems: none Results Review: All pre-operative results and documents have been reviewed as part of the pre-operative evaluation. [facility] Social History Social History Smoking status: Never smoker Alcohol intake: current Alcohol use details: twice a week Substance use: never Substance use type: does not use Living arrangements: with family Spiritual care concerns: No Anes - Eval Final PreProcedure Day of Procedure 10/09/24 09:18 Patient weight: normal Lungs: normal air movement Airway: Mallampati scale class II Neurological: alert and oriented Last oral intake: >/= 8 hours ASA classification: II Emergent: no Anesthetic plan: proceed Anesthesia type and monitoring: general GIVS and standard monitoring Results Review: All pre-operative results and documents have been reviewed as part of the pre-operative evaluation. Eosinophilic asthma, stable. Informed Consent: The patient's anesthetic plan and its attendant risks and benefits were discussed with the patient/family/POA. Questions were solicited and answers provided to the satisfaction of the patient/family/POA.
--- NOTE | 2024-10-09 09:36 | SUR.PREOP ---
Patient states last menstrual cycle was 15 years ago. No need to check bedside urine per Dr. Trevino.
--- NOTE | 2024-10-09 09:52 | P.HP_ITS ---
H&P: HPI History of Present Illness Date/Time: 10/09/24 09:52 Chief Complaint: Screening colonoscopy Narrative: This is the patient's first colonoscopy. There are no GI symptoms and there is no family history of colorectal cancer. Review of Systems Review of Systems: All systems reviewed & are unremarkable except as noted in HPI and below [facility] Social History Social History Smoking status: Never smoker Alcohol intake: current Alcohol use details: twice a week Substance use: never Substance use type: does not use Living arrangements: with family Spiritual care concerns: No Meds Home Medications and Allergies Home Medications ?Medication ?Instructions ?Recorded ?Confirmed ?Type apremilast 30 mg tablet (Otezla) mg PO 10/05/24 History dupilumab 200 mg/1.14 mL mg subcut 10/05/24 History subcutaneous syringe (Dupixent) escitalopram oxalate 20 mg tablet 20 mg PO DAILY 10/05/24 10/09/24 History oxybutynin chloride 15 mg 15 mg PO DAILY 10/05/24 10/09/24 History tablet,extended release 24 hr Allergies Allergy/AdvReac Type Severity Reaction Status Date / Time No Known Allergies Allergy Verified 10/09/24 08:51 Vital Signs Vital Signs - 24 hr 10/09/24 08:53 Temperature 96.1 F L Pulse Rate 82 Respiratory Rate 20 Blood Pressure 144/86 H Pulse Oximetry 100 Oxygen Delivery Room Air Exam Const: General: cooperative and healthy appearing Resp: Effort & Inspection: normal respiratory effort and able to speak in complete sentences Auscultation: clear to auscultation bilaterally Cardio: Rate: regular rate Rhythm: regular rhythm GI: Inspection: normal to inspection GI Palp: No No hepatosplenomegaly present Auscultation: normal bowel sounds Rectal Exam: deferred Skin: General skin exam: normal color Psych: Appearance: grossly normal Mental Status: mental status grossly normal Assessment and Plan Assessment and plan (1) Encounter for screening colonoscopy: Code(s): Z12.11 - Encounter for screening for malignant neoplasm of colon Status: Acute Assessment and Plan: The patient is deemed a good candidate for the procedure. Consent signed. Will proceed.
[2024-10-09 10:13] VITALS: BP 146/96; PULSE 63; RESP 14; O2SAT 99
[2024-10-09 10:23] VITALS: BP 108/67; PULSE 79; RESP 21; O2SAT 100
[2024-10-09 10:33] VITALS: BP 133/84; PULSE 72; RESP 21; O2SAT 100
== END 2024-10-09 10:51 | disposition home or self-care (01) ==
PROVIDERS: Visit Provider Internal Medicine Gastroenterology
PROC: 0DJD8ZZ Inspection of Lower Intestinal Tract, Via Natural or Artificial Opening Endoscopic (ICD-10-PCS; CPT 45378; principal; 2024-10-09 10:00)
DX: Z12.11 Encounter for screening for malignant neoplasm of colon (principal); K64.8 Other hemorrhoids
CPT/HCPCS: 45378; J2003; J2704; J7120